=== PATIENT | male | born 1960 | race Caucasian/White ===

== ENCOUNTER → 2019-07-23 10:15 | Outpatient (CLI) | payer OTHER ==
[2019-07-23 11:06] LABS: CREATININE - URINE 67.7 mg/dL (30-125); PROTEIN - URINE 135.4 mg/dL (0.0-11.9)
[2019-07-23 11:11] LABS: APPEARANCE CLEAR (CLEAR); BILIRUBIN NEGATIVE (NEGATIVE); COLOR YELLOW (YELLOW); GLUCOSE NEGATIVE (NEGATIVE); KETONE NEGATIVE (NEGATIVE); NITRITE NEGATIVE (NEGATIVE); PROTEIN 3+ mg/dL (NEGATIVE); UROBILINOGEN NORMAL (NORMAL)
[2019-07-23 11:12] LABS: AMORPHOUS SEDIMENT <1+ /lpf (NONE SEEN); RED CELLS - URINE RARE /hpf (0-5)
[2019-07-23 11:22] LABS: ALBUMIN 3.7 g/dL (3.4-5.0); ALKALINE PHOSPHATASE 65 U/L (46-116); ALT (SGPT) 24 U/L (10-68); BILIRUBIN - TOTAL 0.63 mg/dL (0.2-1.3); CALC OSMOLALITY 278 mosm/kg (275-300); CALCIUM 8.9 mg/dL (8.5-10.1); CARBON DIOXIDE 24.3 mmol/L (21.0-32.0); CHLORIDE - SERUM 104 mmol/L (98-107); CREATININE - SERUM 0.9 mg/dL (0.6-1.3); GLUCOSE 124 mg/dL (74-106); POTASSIUM - SERUM 4.1 mmol/L (3.5-5.1); PROTEIN - SERUM 6.7 g/dL (6.4-8.2); SODIUM 138 mmol/L (136-145); UREA NITROGEN 18 mg/dL (7-18); URIC ACID 7.4 mg/dL (2.6-7.2); eGFR NON AFRICAN AMERICAN > 90 mL/min (90-120)
[2019-07-24 11:10] LABS: HCV AB 0.1 (0.0-0.9)
[2019-07-24 13:10] LABS: SPE - A/G RATIO 1.1 (0.7-1.7); SPE - ALBUMIN 3.5 g/dL (2.9-4.4); SPE - ALPHA-1 GLOBULIN 0.2 g/dL (0.0-0.4); SPE - BETA GLOBULIN 1.1 g/dL (0.7-1.3); SPE - GAMMA GLOBULIN 0.8 g/dL (0.4-1.8); SPE - M-SPIKE Not Observed g/dL (Not Observed); SPE - TOTAL PROTEIN 6.6 g/dL (6.0-8.5); UPE RAND - ALBUMIN 67.8 % (()); UPE RAND - ALPHA 1 GLOBULIN 6.8 % (()); UPE RAND - ALPHA 2 GLOBULIN 6.8 % (()); UPE RAND - BETA GLOBULIN 12.3 % (()); UPE RAND - GAMMA GLOBULIN 6.3 % (())
== END | disposition home or self-care (01) ==
LOC: D.LAB 10:15
PROVIDERS: ATTEND Internal Medicine
DX: R80.0 Isolated proteinuria (principal); I15.0 Renovascular hypertension; E11.42 Type 2 diabetes mellitus with diabetic polyneuropathy